=== PATIENT | female | born 1955 | race Caucasian/White ===

== ENCOUNTER 2020-09-24 18:53 | Emergency (ER) | payer SELFPAY ==
[2020-09-24 19:09] VITALS: TEMP 98.1; BMI 33.7
[2020-09-24 20:38] LABS: BASO % 0.3 % (0-2.0); EOS % 1.9 % (0-4.5); HEMATOCRIT 38.8 % (32.4-45.2); HEMOGLOBIN 13.7 GM/dL (10.7-15.3); LYMPH % 50.6 % (8-40); MCH 32.2 pg (25.7-33.7); MCHC 35.2 g/dl (32.0-36.0); MEAN CELL VOLUME 91.4 fl (80-96); MEAN PLT VOLUME 8.4 fl (7.5-11.1); MONO % 7.5 % (3.8-10.2); NEUT % 39.7 % (42.8-82.8); PLATELET COUNT 235 10^3/uL (134-434); RBC 4.25 M/mm3 (3.60-5.2); RDW 13.2 % (11.6-15.6); WHITE BLOOD COUNT 3.7 K/mm3 (4.0-10.0)
[2020-09-24 21:05] LABS: CHLORIDE 102 mmol/L (98-107); SODIUM 137 mmol/L (136-145)
[2020-09-24 21:07] LABS: ALBUMIN 3.6 g/dl (3.4-5.0); ANION GAP 7 MMOL/L (8-16); BLOOD UREA NITROGEN 16.3 mg/dL (7-18); CALCIUM 8.7 mg/dL (8.5-10.1); CO2 28 mmol/L (21-32); GLUCOSE,RANDOM 256 mg/dL (74-106)
[2020-09-24 21:08] LABS: MAGNESIUM 1.7 mg/dL (1.8-2.4)
[2020-09-24 21:10] LABS: CREATININE 0.7 mg/dL (0.55-1.3); SGOT/AST 24 U/L (15-37); SGPT/ALT 26 U/L (13-61)
[2020-09-24 21:11] LABS: PHOSPHOROUS 3.1 mg/dL (2.5-4.9)
[2020-09-24 21:12] LABS: BILIRUBIN,TOTAL 0.5 mg/dL (0.2-1); TOT PROT 7.1 g/dl (6.4-8.2)
[2020-09-24 21:13] LABS: ALK PHOS 135 U/L (45-117)
[2020-09-24 22:12] VITALS: BP 164/82; PULSE 83
== END 2020-09-25 00:57 | disposition home or self-care (01) ==
LOC: JER 18:53
DX: R07.9 Chest pain, unspecified (principal)
CPT/HCPCS: 36415; 71045-TC-FY; 80053; 82962; 83735; 84100; 84484; 85025; 93005; 93010; 99281-25